=== PATIENT | male | born 1945 | race Two or more races ===

== ENCOUNTER 2020-01-15 07:32 | Day surgery (SDC) | payer OTHER | END 2020-01-15 13:45 | disposition home or self-care (01) | LOC: AMB-ENDOS 07:32 → ADM 14:00 → AMB-ENDOS 14:00 | DX: D12.0 Benign neoplasm of cecum (principal); K57.30 Diverticulosis of large intestine without perforation or abscess without bleeding; K64.1 Second degree hemorrhoids ==